=== PATIENT | female | born 1940 | race Caucasian/White ===

== ENCOUNTER 2020-06-15 16:33 | Inpatient (IN) | payer MEDICARE ==
[~2020-06-15 16:33] MED LIST: Iopamidol-370 76% 500 ML 1 ML ONE
[2020-06-15 17:22] LABS: #Basophils 0.1 thou/uL (0.0-0.2); #Eosinphils 0.1 thou/uL (0.0-0.7); #Lymphocytes 1.4 thou/uL (1.20-3.40); #Monocytes 1.1 thou/uL (0.11-0.59); %Basophils 0.7 % (0.0-1.0); %Eosinophils 0.8 % (0.0-10.0); %Lymphocytes 15.8 % (21.0-51.0); %Monocytes 12.2 % (0.0-10.0); %Neutrophils 70.5 % (42.0-75.0); Mean Corpuscular HGB CONC 34.2 g/dL (32.0-36.0); Mean Corpuscular Hemoglobin 36.6 pg (27.0-31.0); Mean Platelet Volume 7.6 fL (7.4-10.4); Platelet Count 218 thou/uL (130-400); RBC Distribution Width 14.1 % (11.5-14.5); Red Blood Cell (RBC) Count 3.82 mill/uL (4.20-5.40); White Blood Cell (WBC) Count 8.6 thou/uL (4.8-10.8)
[2020-06-15 17:37] LABS: Anisocytosis SLIGHT = 6-15 cells (100X) (0-5/hpf); MDiff Complete? YES; Macrocytosis SLIGHT = 6-15 cells (100X) (0-5/hpf); Platelet Morphology Comment Appears Adequate
[2020-06-15 17:46] LABS: ALT (SGPT) 10 U/L (8-55); AST (SGOT) 15 U/L (5-34); Albumin 3.8 g/dL (3.4-4.8); Alkaline Phosphatase 67 U/L (40-110); Anion Gap 19 mmol/L (10-20); BUN (Urea Nitrogen) 25 mg/dL (9.8-20.1); Bilirubin, Total 0.7 mg/dL (0.2-1.2); Calc. Creatinine Clearance 0 mL/min (70-130); Calcium 9.2 mg/dL (7.8-10.44); Carbon Dioxide 17 mmol/L (23-31); Chloride 99 mmol/L (98-107); Globulin 2.7 g/dL (2.4-3.5); Glucose 104 mg/dL (83-110); Potassium 3.8 mmol/L (3.5-5.1); Protein, Total 6.5 g/dL (5.8-8.1); Sodium 131 mmol/L (136-145)
[2020-06-15 18:16] LABS: Bacteria/HPF None Seen HPF (None Seen); Bilirubin Negative (Negative); Blood, Urine Negative (Negative); Clarity Clear (Clear); Glucose, Urine (Dipstick) Normal (Negative); Ketone, Urine Trace mg/dL (Negative); Leukocyte 25 Leu/uL (Negative); Nitrite Negative (Negative); Protein, Urine (Dipstick) 10 mg/dL (Neg-Trace); RBC/HPF None Seen HPF (0-3); Specific Gravity, Urine 1.022 (1.002-1.036); Squamous Epithelial 0-3 HPF (0-3); Urobilinogen Normal mg/dL (Less than 2); WBC/HPF 0-3 HPF (0-3)
[2020-06-15 19:05] LABS: Salicylate Less than 8.0 mg/dL (15.0-30.0)
[2020-06-15] MEDS ORDERED: Aspirin Chewable 81 MG TAB ONE (19:08)
[2020-06-15 22:45] LABS: Troponin I 0.025 ng/mL (< 0.028)
[2020-06-15] MEDS ORDERED: Ondansetron ODT 4 MG TAB PO PRN (23:02)
[2020-06-15] MEDS ORDERED: HYDROcodone/Acetaminophen 5/325 mg Tablet PO PRN (23:02)
[2020-06-15] MEDS ORDERED: Ondansetron PF 4 MG/2 ML Vial IVP PRN (23:02)
[2020-06-16 00:28] VITALS: BMI 25.9
[2020-06-16 00:31] LABS: Troponin I 0.032 ng/mL (< 0.028)
[2020-06-16] MEDS: Acetaminophen 325 MG TAB PO PRN ×2 (00:37→04:42)
[2020-06-16 05:29] LABS: #Eosinphils 0.1 thou/uL (0.0-0.7); #Lymphocytes 1.8 thou/uL (1.20-3.40); #Monocytes 0.8 thou/uL (0.11-0.59); #Neutrophils 4.3 thou/uL (1.40-6.50); %Basophils 0.5 % (0.0-1.0); %Eosinophils 1.6 % (0.0-10.0); %Lymphocytes 25.1 % (21.0-51.0); %Neutrophils 60.8 % (42.0-75.0); Hemoglobin 13.5 g/dL (12.0-16.0); Mean Corpuscular HGB CONC 33.8 g/dL (32.0-36.0); Mean Corpuscular Hemoglobin 36.2 pg (27.0-31.0); Mean Platelet Volume 7.8 fL (7.4-10.4); Platelet Count 189 thou/uL (130-400); RBC Distribution Width 13.9 % (11.5-14.5); Red Blood Cell (RBC) Count 3.74 mill/uL (4.20-5.40)
[2020-06-16 05:52] LABS: Anion Gap 15 mmol/L (10-20); BUN (Urea Nitrogen) 19 mg/dL (9.8-20.1); Calc. Creatinine Clearance 78 mL/min (70-130); Calcium 8.8 mg/dL (7.8-10.44); Carbon Dioxide 17 mmol/L (23-31); Cardiac Risk 3.1 (Less than 4.5); Chloride 105 mmol/L (98-107); Cholesterol 168 mg/dl (< 200 Desired); Glucose 98 mg/dL (83-110); HDL Cholesterol 54 mg/dL (>60 Neg Risk); LDL Cholesterol, Calculated 85 mg/dL; Potassium 3.4 mmol/L (3.5-5.1); Sodium 134 mmol/L (136-145); Triglycerides 144 mg/dL (Less than 150)
[2020-06-16] MEDS: Aspirin 81 mg Enteric Coated Tablet PO SCH (10:00)
[2020-06-16] MEDS: Enoxaparin Sodium 40 MG/0.4 ML SYRINGE SC SCH ×2 (10:00→10:01)
[2020-06-16] MEDS: cefTRIAXone\\ROCEPHIN 1 GM in Sodium Chloride 0.9% 100 ML IVPB SCH (11:01)
[2020-06-16] MEDS ORDERED: Simethicone Chewable 80 MG TAB PO PRN (14:07)
[2020-06-16] MEDS ORDERED: Loratadine 10 MG TAB PO PRN (14:07)
[2020-06-16] MEDS ORDERED: cloNIDine 0.2 MG TAB PO PRN (17:02)
[2020-06-16] MEDS: cloNIDine 0.2 MG TAB PO PRN (17:52)
[2020-06-16] MEDS: Apixaban 5 MG TAB PO SCH (20:55)
[2020-06-16] MEDS: hydrALAZINE 20 MG/ML VIAL SLOW IVP PRN (23:15)
[2020-06-17] MEDS: cloNIDine 0.2 MG TAB PO PRN ×3 (08:29→23:38)
[2020-06-17] MEDS: Aspirin 81 mg Enteric Coated Tablet PO SCH (08:30)
[2020-06-17] MEDS: Losartan 25 MG TAB PO SCH (08:30)
[2020-06-17] MEDS ORDERED: Haloperidol Lactate 5 MG/ML VIAL SLOW IVP SCH (08:30)
[2020-06-17] MEDS: predniSONE 5 MG TAB PO SCH (08:30)
[2020-06-17] MEDS: Apixaban 5 MG TAB PO SCH ×2 (08:30→21:33)
[2020-06-17] MEDS ORDERED: Apixaban 5 MG TAB PO SCH (09:00)
[2020-06-17] MEDS: cefTRIAXone\\ROCEPHIN 1 GM in Sodium Chloride 0.9% 100 ML IVPB SCH (11:54)
[2020-06-17] MEDS: Acetaminophen 325 MG TAB PO PRN (21:34)
[2020-06-18] MEDS: hydrALAZINE 20 MG/ML VIAL SLOW IVP PRN (03:59)
[2020-06-18 06:00] LABS: ALT (SGPT) 10 U/L (8-55); AST (SGOT) 16 U/L (5-34); Albumin 3.5 g/dL (3.4-4.8); Alkaline Phosphatase 58 U/L (40-110); Anion Gap 13 mmol/L (10-20); BUN (Urea Nitrogen) 15 mg/dL (9.8-20.1); Bilirubin, Total 0.5 mg/dL (0.2-1.2); Calc. Creatinine Clearance 81 mL/min (70-130); Carbon Dioxide 21 mmol/L (23-31); Chloride 108 mmol/L (98-107); Globulin 2.5 g/dL (2.4-3.5); Glucose 101 mg/dL (83-110); Potassium 3.6 mmol/L (3.5-5.1); Sodium 138 mmol/L (136-145)
[2020-06-18 06:01] LABS: Band 1 % (5-11); Eosinophils 2 % (0-10); Hemoglobin 13.2 g/dL (12.0-16.0); Lymphocytes 18 % (21-51); MDiff Complete? YES; Mean Corpuscular Hemoglobin 35.9 pg (27.0-31.0); Mean Platelet Volume 8.3 fL (7.4-10.4); Monocytes 12 % (0-10); Neutrophil 64 % (42-75); Platelet Count 196 thou/uL (130-400); Platelet Morphology Comment Appears Adequate; Reactive Lymphocytes 2 % (0-10); Red Blood Cell (RBC) Count 3.67 mill/uL (4.20-5.40); White Blood Cell (WBC) Count 6.6 thou/uL (4.8-10.8)
[2020-06-18] MEDS: Aspirin 81 mg Enteric Coated Tablet PO SCH (08:58)
[2020-06-18] MEDS: predniSONE 5 MG TAB PO SCH (08:58)
[2020-06-18] MEDS: Losartan 25 MG TAB PO SCH (08:58)
[2020-06-18] MEDS: Apixaban 5 MG TAB PO SCH ×2 (09:00→20:29)
[2020-06-18] MEDS: cefTRIAXone\\ROCEPHIN 1 GM in Sodium Chloride 0.9% 100 ML IVPB SCH (11:51)
[2020-06-18] MEDS: Acetaminophen 325 MG TAB PO PRN (12:30)
[2020-06-18] MEDS: cloNIDine 0.2 MG TAB PO PRN (16:08)
[2020-06-19] MEDS: cloNIDine 0.2 MG TAB PO PRN ×3 (05:26→21:35)
[2020-06-19 06:07] LABS: #Basophils 0.1 thou/uL (0.0-0.2); #Eosinphils 0.2 thou/uL (0.0-0.7); #Lymphocytes 2.4 thou/uL (1.20-3.40); #Monocytes 0.9 thou/uL (0.11-0.59); #Neutrophils 4.3 thou/uL (1.40-6.50); %Basophils 1.4 % (0.0-1.0); %Eosinophils 2.2 % (0.0-10.0); %Lymphocytes 30.3 % (21.0-51.0); %Monocytes 11.6 % (0.0-10.0); %Neutrophils 54.7 % (42.0-75.0); Hemoglobin 13.9 g/dL (12.0-16.0); Mean Corpuscular Hemoglobin 35.4 pg (27.0-31.0); Platelet Count 228 thou/uL (130-400); Red Blood Cell (RBC) Count 3.93 mill/uL (4.20-5.40); White Blood Cell (WBC) Count 7.9 thou/uL (4.8-10.8)
[2020-06-19 06:26] LABS: Anion Gap 16 mmol/L (10-20); BUN (Urea Nitrogen) 15 mg/dL (9.8-20.1); Calc. Creatinine Clearance 72 mL/min (70-130); Calcium 9.5 mg/dL (7.8-10.44); Carbon Dioxide 19 mmol/L (23-31); Chloride 108 mmol/L (98-107); Glucose 112 mg/dL (83-110); Potassium 3.6 mmol/L (3.5-5.1); Sodium 139 mmol/L (136-145)
[2020-06-19] MEDS: Apixaban 5 MG TAB PO SCH ×2 (08:11→21:36)
[2020-06-19] MEDS: Losartan 25 MG TAB PO SCH (08:12)
[2020-06-19] MEDS: predniSONE 5 MG TAB PO SCH (08:13)
[2020-06-19] MEDS: Aspirin 81 mg Enteric Coated Tablet PO SCH (08:13)
[2020-06-19] MEDS: Acetaminophen 325 MG TAB PO PRN (10:27)
[2020-06-19] MEDS: cefTRIAXone\\ROCEPHIN 1 GM in Sodium Chloride 0.9% 100 ML IVPB SCH (10:27)
[2020-06-19] MEDS ORDERED: Amlodipine 5 MG TAB PO SCH (21:00)
[2020-06-20] MEDS: hydrALAZINE 20 MG/ML VIAL SLOW IVP PRN (02:12)
[2020-06-20 06:23] LABS: #Basophils 0.1 thou/uL (0.0-0.2); #Eosinphils 0.1 thou/uL (0.0-0.7); #Lymphocytes 1.8 thou/uL (1.20-3.40); #Monocytes 0.8 thou/uL (0.11-0.59); %Basophils 1.1 % (0.0-1.0); %Eosinophils 1.7 % (0.0-10.0); %Monocytes 10.7 % (0.0-10.0); %Neutrophils 63.5 % (42.0-75.0); Hemoglobin 13.1 g/dL (12.0-16.0); Mean Corpuscular HGB CONC 32.2 g/dL (32.0-36.0); Mean Corpuscular Hemoglobin 35.6 pg (27.0-31.0); Mean Platelet Volume 8.6 fL (7.4-10.4); Platelet Count 233 thou/uL (130-400); RBC Distribution Width 13.8 % (11.5-14.5); Red Blood Cell (RBC) Count 3.67 mill/uL (4.20-5.40); White Blood Cell (WBC) Count 7.8 thou/uL (4.8-10.8)
[2020-06-20 06:47] LABS: Anion Gap 15 mmol/L (10-20); BUN (Urea Nitrogen) 12 mg/dL (9.8-20.1); Calc. Creatinine Clearance 86 mL/min (70-130); Calcium 9.6 mg/dL (7.8-10.44); Carbon Dioxide 22 mmol/L (23-31); Chloride 108 mmol/L (98-107); Glucose 100 mg/dL (83-110); Potassium 3.5 mmol/L (3.5-5.1); Sodium 141 mmol/L (136-145)
[2020-06-20] MEDS: Losartan 25 MG TAB PO SCH (09:17)
[2020-06-20] MEDS: Aspirin 81 mg Enteric Coated Tablet PO SCH (09:17)
[2020-06-20] MEDS: Apixaban 5 MG TAB PO SCH ×2 (09:17→21:16)
[2020-06-20] MEDS: predniSONE 5 MG TAB PO SCH (09:17)
[2020-06-20] MEDS: Acetaminophen 325 MG TAB PO PRN (11:58)
[2020-06-20] MEDS: cefTRIAXone\\ROCEPHIN 1 GM in Sodium Chloride 0.9% 100 ML IVPB SCH (12:45)
[2020-06-20] MEDS: cloNIDine 0.2 MG TAB PO PRN (15:37)
[2020-06-20] MEDS: Amlodipine 10 MG TAB PO SCH (21:16)
[2020-06-21 05:57] LABS: #Basophils 0.1 thou/uL (0.0-0.2); #Eosinphils 0.1 thou/uL (0.0-0.7); #Lymphocytes 1.7 thou/uL (1.20-3.40); #Monocytes 0.8 thou/uL (0.11-0.59); %Basophils 1.2 % (0.0-1.0); %Monocytes 11.3 % (0.0-10.0); %Neutrophils 59.6 % (42.0-75.0); Hemoglobin 12.8 g/dL (12.0-16.0); Mean Corpuscular HGB CONC 34.6 g/dL (32.0-36.0); Mean Corpuscular Hemoglobin 38.1 pg (27.0-31.0); Platelet Count 215 thou/uL (130-400); RBC Distribution Width 13.6 % (11.5-14.5); Red Blood Cell (RBC) Count 3.36 mill/uL (4.20-5.40); White Blood Cell (WBC) Count 6.7 thou/uL (4.8-10.8)
[2020-06-21 06:18] LABS: Anion Gap 13 mmol/L (10-20); BUN (Urea Nitrogen) 12 mg/dL (9.8-20.1); Calc. Creatinine Clearance 81 mL/min (70-130); Calcium 9.2 mg/dL (7.8-10.44); Carbon Dioxide 23 mmol/L (23-31); Chloride 108 mmol/L (98-107); Glucose 95 mg/dL (83-110); Potassium 3.7 mmol/L (3.5-5.1); Sodium 140 mmol/L (136-145)
[2020-06-21] MEDS: Losartan 25 MG TAB PO SCH (08:36)
[2020-06-21] MEDS: Apixaban 5 MG TAB PO SCH ×2 (08:36→21:12)
[2020-06-21] MEDS: Cyanocobalamin (Vitamin B-12) 1,000 MCG TAB PO SCH (08:36)
[2020-06-21] MEDS: Folic Acid 1 MG TAB PO SCH (08:36)
[2020-06-21] MEDS: predniSONE 5 MG TAB PO SCH (08:36)
[2020-06-21] MEDS: Aspirin 81 mg Enteric Coated Tablet PO SCH (08:37)
[2020-06-21] MEDS: cloNIDine 0.2 MG TAB PO PRN (08:40)
[2020-06-21] MEDS: hydrALAZINE 25 MG TAB PO SCH ×2 (15:21→21:12)
[2020-06-21] MEDS: Amlodipine 10 MG TAB PO SCH (21:10)
[2020-06-22] MEDS: Aspirin 81 mg Enteric Coated Tablet PO SCH (08:53)
[2020-06-22] MEDS: Apixaban 5 MG TAB PO SCH (08:53)
[2020-06-22] MEDS: predniSONE 5 MG TAB PO SCH (08:53)
[2020-06-22] MEDS: Folic Acid 1 MG TAB PO SCH (08:53)
[2020-06-22] MEDS: Losartan 25 MG TAB PO SCH (08:53)
[2020-06-22] MEDS: hydrALAZINE 25 MG TAB PO SCH (08:54)
[2020-06-22] MEDS: Cyanocobalamin (Vitamin B-12) 1,000 MCG TAB PO SCH (08:54)
[2020-06-22 12:17] VITALS: BP 102/56; TEMP 97.6
== END 2020-06-22 15:15 | disposition home or self-care (01) | DRG 92 ==
LOC: ERS 16:33 → ERHOLD 20:41 → 2SE 23:36 → OBSVTOIN 06-17 11:37
PROVIDERS: ADMIT Student in an Organized Health Care Education/Training Program; ATTEND Internal Medicine
DX: G92 Toxic encephalopathy (principal); N39.0 Urinary tract infection, site not specified; M06.9 Rheumatoid arthritis, unspecified; M35.3 Polymyalgia rheumatica; R00.1 Bradycardia, unspecified; I10 Essential (primary) hypertension; E53.8 Deficiency of other specified B group vitamins; Z88.1 Allergy status to other antibiotic agents; Z79.899 Other long term (current) drug therapy; Z79.01 Long term (current) use of anticoagulants
CPT/HCPCS: 36415; 36416; 51701; 70450; 70496; 70498; 70551; 71045; 80048; 80053; 80061; 80143; 80179; 81003; 81015; 82607; 82746; 84443; 84484; 85025; 87086; 93005; 93306; 94760; 95712; 95819; 95957; 96365; 96375; 80307; G0378; J0360; J0696; J1630; J1650; J3490; J7512; Q9967